=== PATIENT | female | born 1975 | race Caucasian/White ===

== ENCOUNTER 2019-06-06 14:58 | Emergency (ER) | payer OTHER ==
[~2019-06-06] VITALS: Ht 172.7 cm; Wt 54.4 kg
[2019-06-06] MEDS ORDERED: BENADRYL (15:29)
== END 2019-06-06 19:07 | disposition home or self-care (01) ==
LOC: ER 14:58
DX: L50.0 Allergic urticaria (principal); T78.49XA Other allergy, initial encounter; X58.XXXA Exposure to other specified factors, initial encounter